=== PATIENT | male | born 1990 | race Caucasian/White ===

== ENCOUNTER 2017-10-30 06:26 | Emergency (ER) | payer SELFPAY ==
[~2017-10-30] VITALS: Ht 177.8 cm; Wt 71.8 kg
[2017-10-30] MEDS ORDERED: TAMIFLU75 MG PO (10:30)
[2017-10-30] MEDS ORDERED: TESSALON200 MG PO (10:30)
[2017-10-30 10:47] VITALS: BP 127/66
== END 2017-10-30 10:47 | disposition home or self-care (01) ==
LOC: EME 06:26
DX: J11.1 Influenza due to unidentified influenza virus with other respiratory manifestations (principal); R11.2 Nausea with vomiting, unspecified; Z21 Asymptomatic human immunodeficiency virus [HIV] infection status; F17.200 Nicotine dependence, unspecified, uncomplicated
CPT/HCPCS: 99281; 99283